=== PATIENT | female | born 1945 | race African-American/Black ===

== ENCOUNTER → 2024-06-24 | Outpatient (CLI) | payer MEDICARE ==
--- NOTE | 2024-06-25 13:43 | HMCSR ---
APPROVED REPORT EXAM: Two-dimensional and M-mode echocardiogram with Doppler and color Doppler. INDICATION ICD: I35.0 Non-rheumatic aortic valve stenosis Murmur 2D Dimensions RVDd3.9 cmLVEF(%)37.8 (>50%)LVED Vol(simp.)125.0 mL IVSd0.8 (0.7-1.1cm)FS(%)18 %LVES Vol(simp.)72.0 mL LVDd4.6 (3.8-5.6cm)Ao Root(2D)2.9 (2.0-3.7cm)LVEF(%, simp.)42 % PWd0.9 (0.7-1.1cm)LVOT diam2.2 (1.8-2.4cm)LA ESV INDEX (BP)52.20 mL/m2 LVDs3.8 (2.5-4.0cm)IVC diam1.9 cm Aortic Valve AoV Vmax2.0 m/Rosalva Peak GR16.4 mmHgLVOT Vmax0.7 m/s AoV VTI0.5 mAo Mean GR10.2 mmHgLVOT VTI0.20 m EDGAR (VMAX)1.5 cm2AVA (VTI) 1.5 cm2 Mitral Valve MV E Nlet523.4 cm/sDECEL Pyrd133 ms MV A Rmaq451.0 cm/sP 1/2 T51 ms E/A ratio0.8MVA (PHT)4.3 cm2 MR Max PG69 mmHg TDI E/E' Qfgcaj51.8E/E' Itkjnsp09.2 Pulmonary Valve PV Vmax0.8 m/sPV VTI0.18 mPV Mean GR2 mmHg PV Peak GR2.6 mmHg Tricuspid Valve TR Vmax2.6 m/sRAP (EST) 8 egEkJVSD93.6 mmHg TR Peak GR27.6 mmHg Left Ventricle The left ventricle structure and function is normal. There is normal LV segmental wall motion. There is normal left ventricular wall thickness. LVEF is 55-60%. Stage I diastolic dysfunction. Right Ventricle The right ventricle is normal size. The right ventricular systolic function is normal. Atria The left atrium is severely dilated. The right atrium size is normal. Aortic Valve Aortic valve is trileaflet. Aortic valve is moderately calcified. Trace aortic regurgitation. Calcula daniella aortic valve area is 1.5 cm2 with maximum pressure gradient of 16.4 mmHg and mean pressure gradie nt of 10.2 mmHg. Mitral Valve Mitral valve leaflets are mildly calcified. Mitral annular calcification is mild. Mitral regurgitatio n is trace. There is no mitral valve stenosis. Tricuspid Valve The tricuspid valve leaflets appear normal. There is mild tricuspid regurgitation. Right ventricular systolic pressure is estimated at 30-40 mmHg. Pulmonic Valve Pulmonic valve is not well visualized. There is trace pulmonic valvular regurgitation. Great Vessels The aortic root is normal in size. IVC is dilated and collapses >50% with inspiration. Pericardium No pericardial effusion. Conclusion LVEF is 45-50%. Regional wall motion abnormalities cannot be excluded. LVEF is 55-60%. Stage I diastolic dysfunction. There is normal LV segmental wall motion. There is mild tricuspid regurgitation. Right ventricular systolic pressure is estimated at 30-40 mmHg.
== END | disposition home or self-care (01) ==
LOC: SHCH 13:51
PROVIDERS: ATTEND Internal Medicine Cardiovascular Disease
DX: I08.3 Combined rheumatic disorders of mitral, aortic and tricuspid valves (principal); R01.1 Cardiac murmur, unspecified
CPT/HCPCS: 93306

== ENCOUNTER → 2024-10-20 | Outpatient (CLI) | payer MEDICARE ==
[2024-10-20 17:03] LABS: ALBUMIN 3.5 g/dL (3.5-5.0); BILIRUBIN,TOTAL 0.3 mg/dL (0.2-1.0); MAGNESIUM 2.1 mg/dL (1.80-2.40); POTASSIUM 3.4 mmol/L (3.5-5.1); TOTAL PROTEIN, SERUM 7.4 g/dL (6.0-8.3)
== END | disposition home or self-care (01) ==
LOC: LAB 15:06
PROVIDERS: ATTEND Internal Medicine Cardiovascular Disease
DX: I77.9 Disorder of arteries and arterioles, unspecified (principal)
CPT/HCPCS: 36415; 80053; 83735